=== PATIENT | female | born 1970 | race Caucasian/White ===

== ENCOUNTER → 2016-04-11 | Outpatient (CLI) | payer OTHER ==
[~2016-04-11] MED LIST: AMOXICILLIN 8751 TAB PO; MOTRIN 600600 MG/TAB PO; NORCO 325 MG-51 TAB PO; PERCOCET 325 MG1 TA2 PO; PRENATAL1 TA3 PO; SENOKOT S 50 MG1 TAB PO
== END ==
LOC: MC.RAD 08:00
DX: Z12.31 Encounter for screening mammogram for malignant neoplasm of breast (principal)

== ENCOUNTER 2016-06-13 13:20 | Emergency (ER) | payer SELFPAY ==
[~2016-06-13] VITALS: Ht 162.6 cm; Wt 75.0 kg
[~2016-06-13 13:20] MED LIST changes: -AMOXICILLIN 8751 TAB PO; -NORCO 325 MG-51 TAB PO
[2016-06-13 13:21] VITALS: BP 132/73; PULSE 88; TEMP 97.9
[2016-06-13] MEDS ORDERED: AMOXICILLIN 8751 TAB PO (14:13)
[2016-06-13] MEDS ORDERED: NORCO 325 MG-51 TAB PO (14:13)
== END 2016-06-13 14:27 | disposition home or self-care (01) ==
LOC: COL.ER 13:20
DX: L03.116 Cellulitis of left lower limb (principal)

== ENCOUNTER → 2021-08-24 | Outpatient (CLI) | payer OTHER ==
[~2021-08-24] MED LIST changes: +AMOXICILLIN 8751 TAB PO; +NORCO 325 MG-51 TAB PO
== END ==
LOC: MC.RAD 07:00
DX: Z12.31 Encounter for screening mammogram for malignant neoplasm of breast (principal)